=== PATIENT | male | born 1975 | race African-American/Black ===

== ENCOUNTER 2020-01-19 22:05 | Emergency (ER) | payer OTHER ==
[~2020-01-19] VITALS: Ht 190.5 cm; Wt 88.0 kg
[2020-01-19] MEDS ORDERED: ALEVE220 M1 PO (22:16)
[2020-01-19] MEDS ORDERED: TRAMADOL 50 MG50 MG PO (23:41)
[2020-01-19 23:46] VITALS: BP 162/99
== END 2020-01-19 23:46 | disposition home or self-care (01) ==
LOC: M.ERS 22:05
DX: M25.461 Effusion, right knee (principal); W22.8XXA Striking against or struck by other objects, initial encounter; Y93.89 Activity, other specified; Y92.89 Other specified places as the place of occurrence of the external cause; Y99.8 Other external cause status